=== PATIENT | female | born 1995 | race Caucasian/White ===

== ENCOUNTER 2019-03-25 19:32 | Emergency (ER) | payer OTHER ==
--- NOTE | 2019-03-25 19:59 | PDOC ---
Rapid Medical Evaluation Time Seen by Provider: 03/25/19 19:54 Medical Evaluation: 03/25/19 19:55 Pt is a 23 y/o F complaining of diffuse abdominal pain for one day. Pt also with associated headache and sore throat. LMP was yesterday Exam: Diffuse abdominal tenderness with no focal findings. Throat erythematous without exudate or edema Orders: Labs, rapid strep, IV, urine Pt to proceed to the ER for further evaluation Discharge Disposition - Diagnosis Abdominal pain Qualifiers: Abdominal location: generalized Qualified Code(s): R10.84 - Generalized abdominal pain - Referrals - Patient Instructions - Post Discharge Activity
[2019-03-25 20:00] VITALS: BMI 29.2
[2019-03-25] MEDS ORDERED: SODIUM CHLORIDE 1,000 ML IV STA (21:01)
[2019-03-25] MEDS ORDERED: ACETAMINOPHEN 325 MG TABLET (FP) PO ONE (21:01)
[2019-03-25] MEDS ORDERED: ONDANSETRON 4 MG/2 ML VIAL IVPB ONE (21:04)
--- NOTE | 2019-03-25 21:05 | PDOC ---
History of Present Illness - General Chief Complaint: Pain Stated Complaint: ABD PAIN Time Seen by Provider: 03/25/19 19:54 History Source: Patient - History of Present Illness Initial Comments: 03/25/19 21:02 23 year old female with nausea, throat pain, RUQ abdominal pain x1 day. reports one episode of fever at home. denies , URI symptoms, urinary symptoms , flank pain, vomiting, diarrhea. no pmhx 03/26/19 00:38 Past History - Past Medical History Allergies/Adverse Reactions: Allergies Allergy/AdvReac Type Severity Reaction Status Date / Time No Known Allergies Allergy Verified 03/25/19 20:49 Home Medications: Ambulatory Orders Famotidine [Pepcid -] 20 mg PO BID #14 tablet 03/26/19 COPD: No CHF: No - Suicide/Smoking/Psychosocial Hx Smoking History: Unknown if ever smoked Have you smoked in the past 12 months: No Information on smoking cessation initiated: No Hx Alcohol Use: No Drug/Substance Use Hx: No Review of Systems - Review of Systems Able to Perform ROS?: Yes Is the patient limited Macedonian proficient: No Constitutional: Yes: Fever HEENTM: Yes: Throat Pain Respiratory: No: Symptoms reported, See HPI, Cough, Orthopnea, Shortness of Breath, SOB with Exertion, SOB at Rest, Stridor, Wheezing, Productive cough, Hemoptysis, Other Cardiac (ROS): No: Symptoms Reported, See HPI, Chest Pain, Edema, Irregular Heart Rate, Lightheadedness, Palpitations, Syncope, Chest Tightness, Other ABD/GI: Yes: Nausea, Abdominal cramping. No: Symptoms Reported, See HPI, Abdominal Distended, Abd. Pain w/ defecation, Blood Streaked Bowels, Constipated , Diarrhea, Difficulty Swallowing, Poor Appetite, Poor Fluid Intake, Rectal Bleeding, Vomiting, Indigestion, Tarry Stools, Other : No: Symptoms Reported, See HPI, Burning, Dysuria, Discharge, Frequency, Flank Pain, Hematuria, Incontinence, Pain, Urgency, Testicular Mass, Testicular Swelling, Lesions, Testicular Pain, Other Musculoskeletal: No: Symptoms Reported, See HPI, Back Pain, Gout, Joint Pain, Joint Swelling, Muscle Pain, Muscle Weakness, Neck Pain, Joint Stiffness, Other Integumentary: No: Symptoms Reported, See HPI, Bruising, Change in Color, Change in Hair/Nails, Dryness, Erythema, Flushing, Lesions, Lumps, Pallor, Pruritus, Rash, Sweating, Other *Physical Exam - Vital Signs Last Vital Signs Temp Pulse Resp BP Pulse Ox 99.0 F 100 H 16 122/74 100 03/25/19 19:58 03/25/19 19:58 03/25/19 19:58 03/25/19 19:58 03/25/19 19:58 - Physical Exam General Appearance: Yes: Appropriately Dressed Respiratory/Chest: positive: Lungs Clear, Normal Breath Sounds Cardiovascular: positive: Regular Rhythm, Regular Rate Gastrointestinal/Abdominal: positive: Normal Bowel Sounds, Tender (RUQ/ epigastric area), Soft Musculoskeletal: negative: CVA Tenderness Extremity: positive: Normal Capillary Refill, Normal Inspection, Normal Range of Motion Integumentary: positive: Normal Color, Dry, Warm Neurologic: positive: Fully Oriented, Alert, Normal Mood/Affect ED Treatment Course - LABORATORY CBC & Chemistry Diagram: 03/25/19 21:06 03/25/19 19:58 - RADIOLOGY Radiology Studies Ordered: Category Date Time Status ABDOMEN US -LIMITED [US] Stat Ultrasound 03/25/19 21:01 Ordered Medical Decision Making - Medical Decision Making A: gastroenteritis P: IVF labs cbc : 11.8 03/26/19 00:32 patient now has epigastric pain. likely gastritis. no lower abdominal pain. labs / US reviewed 03/26/19 01:03 03/26/19 01:47 patient now reports that she feels better., strict return precautions reviewed with patient, *DC/Admit/Observation/Transfer Diagnosis at time of Disposition: Abdominal pain Qualifiers: Abdominal location: generalized Qualified Code(s): R10.84 - Generalized abdominal pain - Discharge Dispostion Disposition: HOME - Prescriptions Prescriptions: Famotidine [Pepcid -] 20 mg PO BID #14 tablet - Referrals Referrals: ON STAFF,NOT [Primary Care Provider] - Aleyda Webb MD [Staff Physician] - Call tomorrow - Patient Instructions Printed Discharge Instructions: Tompkins Diet Additional Instructions: start a bland diet. follow up with your doctor/ gastroenertologist as soon as possible. drink plenty of fluids return to the ER for any worsening symptoms. - Post Discharge Activity Forms/Work/School Notes: Back to Work, Back to School
--- NOTE | 2019-03-25 21:18 | PDOC ---
*Physical Exam - Vital Signs Last Vital Signs Temp Pulse Resp BP Pulse Ox 99.0 F 100 H 16 122/74 100 03/25/19 19:58 03/25/19 19:58 03/25/19 19:58 03/25/19 19:58 03/25/19 19:58 ED Treatment Course - LABORATORY CBC & Chemistry Diagram: 03/25/19 21:06 03/25/19 19:58 Medical Decision Making - Medical Decision Making 03/25/19 21:19 Patient seen by the advanced practice provider under my direct supervision. Ancillary testing reviewed as necessary. I agree with plan as outlined by the advanced practice provider. *DC/Admit/Observation/Transfer Diagnosis at time of Disposition: Abdominal pain Qualifiers: Abdominal location: generalized Qualified Code(s): R10.84 - Generalized abdominal pain - Referrals Referrals: ON STAFF,NOT [Primary Care Provider] - - Patient Instructions - Post Discharge Activity
[2019-03-25 21:35] LABS: BASO % 0.2 % (0-2.0); EOS % 0.6 % (0-4.5); HEMATOCRIT 41.8 % (32.4-45.2); HEMOGLOBIN 13.6 GM/dL (10.7-15.3); LYMPH % 11.6 % (8-40); MCH 27.1 pg (25.7-33.7); MCHC 32.5 g/dl (32.0-36.0); MEAN CELL VOLUME 83.3 fl (80-96); MONO % 7.2 % (3.8-10.2); NEUT % 80.4 % (42.8-82.8); PLATELET COUNT 261 K/MM3 (134-434); RBC 5.03 M/mm3 (3.60-5.2); RDW 14.5 % (11.6-15.6); WHITE BLOOD COUNT 11.8 K/mm3 (4.0-10.0)
[2019-03-25] MEDS ORDERED: ONDANSETRON 4 MG/2 ML VIAL ONE (21:54)
[2019-03-25] MEDS ORDERED: ACETAMINOPHEN 325 MG TABLET (FP) ONE (21:54)
[2019-03-25 21:56] LABS: INR 1.08 (0.83-1.09); PROTHROMBIN TIME (PATIENT) 12.8 SEC (9.7-13.0)
[2019-03-25 22:01] LABS: BILIRUBIN,TOTAL 0.3 mg/dL (0.2-1); CALCIUM 9.4 mg/dL (8.5-10.1); CREATININE 1.7 mg/dL (0.55-1.3); POTASSIUM 4.5 mmol/L (3.5-5.1); TOT PROT 7.5 g/dl (6.4-8.2)
[2019-03-25 22:23] LABS: URINE APPEARANCE CLEAR; URINE BILIRUBIN NEGATIVE (NEGATIVE); URINE COLOR YELLOW; URINE GLUCOSE (UA) NEGATIVE (NEGATIVE); URINE KETONE NEGATIVE (NEGATIVE); URINE LEUK ESTERASE NEGATIVE (NEGATIVE); URINE NITRITE NEGATIVE (NEGATIVE); URINE PROTEIN TRACE (NEGATIVE); URINE UROBILINOGEN 0.2 mg/dL (0.2-1.0)
[2019-03-25 22:34] LABS: HCG,QUALITATIVE URINE Negative
[2019-03-26] MEDS ORDERED: PANTOPRAZOLE SODIUM 40 MG VIAL IVPB ONE (00:08)
[2019-03-26] MEDS ORDERED: PANTOPRAZOLE SODIUM 40 MG VIAL IVPUSH ONE (01:29)
[2019-03-26] MEDS ORDERED: PANTOPRAZOLE SODIUM 40 MG VIAL ONE (01:41)
[2019-03-26 02:18] VITALS: BP 118/76; PULSE 88; TEMP 98.9
== END 2019-03-26 02:18 | disposition home or self-care (01) ==
LOC: JER 19:32
PROC: 3E033GC Introduction of Other Therapeutic Substance into Peripheral Vein, Percutaneous Approach (ICD-10-PCS; principal; 2019-03-25)
PROC: 3E0337Z Introduction of Electrolytic and Water Balance Substance into Peripheral Vein, Percutaneous Approach (ICD-10-PCS; 2019-03-25)
DX: R10.84 Generalized abdominal pain (principal)
CPT/HCPCS: 36415; 76705-TC; 80053; 81003; 84703; 85025; 85610; 87070; 87086; 87880; 99281-25; J7030

== ENCOUNTER 2022-06-27 09:06 | Emergency (ER) | payer OTHER ==
[2022-06-27 09:15] VITALS: BP 133/55; PULSE 81; RESP 18; TEMP 98.1; BMI 32.5
[2022-06-27] MEDS ORDERED: KETOROLAC TROMETHAMINE 30 MG/1 ML VIAL IM ONE (10:58)
[2022-06-27] MEDS ORDERED: KETOROLAC TROMETHAMINE 30 MG/1 ML VIAL ONE (11:51)
[2022-06-27] MEDS ORDERED: LIDOCAINE 5% TOPICAL PATCH ONE (11:51)
[2022-06-27 12:01] LABS: EPI CELLS 29 /uL (0-25.1); HYALINE CASTS 1 /uL (0-3.1); PH,URINE 7.5 (5.0-8.0); URINE APPEARANCE CLEAR; URINE BACTERIA 1014 /uL (0-1359); URINE BILIRUBIN NEGATIVE (NEGATIVE); URINE COLOR YELLOW; URINE GLUCOSE (UA) NEGATIVE (NEGATIVE); URINE KETONE TRACE (NEGATIVE); URINE LEUK ESTERASE 2+ (NEGATIVE); URINE NITRITE NEGATIVE (NEGATIVE); URINE PROTEIN TRACE (NEGATIVE); URINE WBC 227 /uL (0-25.8)
[2022-06-27 12:02] LABS: HCG,QUALITATIVE URINE Negative
[2022-06-27 12:08] LABS: URINE RBC 21.7 /uL (0-23.9)
[2022-06-28] MEDS ORDERED: LIDOCAINE 5% TOPICAL PATCH TP SCH (10:00)
== END 2022-06-27 12:32 | disposition home or self-care (01) ==
LOC: JERFT 09:06 → JER 09:06 → JERFT 12:32
PROC: 3E0233Z Introduction of Anti-inflammatory into Muscle, Percutaneous Approach (ICD-10-PCS; principal; 2022-06-27)
DX: N39.0 Urinary tract infection, site not specified (principal); M54.50 Low back pain, unspecified
CPT/HCPCS: 81003; 84703; 87086; 99283-25